=== PATIENT | male | born 1955 | race Two or more races ===

== ENCOUNTER 2024-12-27 08:10 | Day surgery (SDC) | payer OTHER ==
[2024-12-24 12:56] LABS: Urine Bacteria None Seen /hpf (None Seen)
[2024-12-24 13:07] LABS: Basophils # (auto) 0 10 ^3/uL (0-0.2); Basophils % (auto) 0.1 % (0.0-2.0); Eosinophils # (auto) 0.1 10 ^3/uL (0-0.8); Eosinophils % (auto) 2.3 % (0.0-7.0); Hematocrit 41.7 % (41.0-53.0); Hemoglobin 14.2 g/dL (13.5-17.5); Lymphocytes # (auto) 1.5 10 ^3/uL (0.4-5.4); Lymphocytes % (auto) 44.3 % (10.0-50.0); Mean Corpuscular Hemoglobin 31.6 pg (28.0-32.0); Mean Corpuscular Volume 92.7 fL (80.0-100.0); Monocytes # (auto) 0.4 10 ^3/uL (0-1.3); Monocytes % (auto) 10.6 % (0.0-12.0); Neutrophils # (auto) 1.5 10 ^3/uL (1.6-8.6); Neutrophils % (auto) 42.7 % (37.0-80.0); Platelet Count (auto) 142 10^3/uL (140-450); Red Cell Distribution Width 12.9 % (11.8-14.3); White Blood Cell 3.4 10^3/uL (4.4-10.8)
[2024-12-24 13:19] LABS: Urine Blood Negative /uL (Negative); Urine Clarity Clear (Clear); Urine Color Light-Yellow (Yellow); Urine Protein, UAD Negative (Negative); Urine Specific Gravity 1.024 (1.001-1.035); Urine Squamous Epithelial Cell FEW /hpf (<5); Urine Urobilinogen Normal (Negative); Urine WBC < 1 /HPF (0-3)
[2024-12-24 13:36] LABS: Alanine Aminotransferase 29 U/L (7-40); Alkaline Phosphatase 114 U/L (46-116); Anion Gap 6 (5-15); Aspartate Aminotransferase 18 U/L (13-40); BUN/Creatinine Ratio 22.1 (10.0-20.0); Blood Urea Nitrogen 19 mg/dL (9-23); Calcium 9.7 mg/dL (8.7-10.4); Carbon Dioxide 27 mmol/L (20-31); Chloride 100 mmol/L (98-107); Potassium 4.2 mmol/L (3.5-5.1); Total Protein 7.9 g/dL (5.7-8.2)
[2024-12-24 13:37] LABS: Bilirubin, Total 0.5 mg/dL (0.2-1.0)
[2024-12-24 13:38] LABS: Albumin 4.8 g/dL (3.2-4.8); Glucose 248 mg/dL (74-106); Sodium 133 mmol/L (136-145)
[2024-12-24 15:08] LABS: INR 1.01 (0.9-1.15); Partial Thromboplastin Time 28.4 SEC (24.5-34.5); Prothrombin Time 10.7 sec (9.3-11.8)
[~2024-12-27] VITALS: Ht 175.3 cm; Wt 83.9 kg
[~2024-12-27 08:10] MED LIST: AML5T PO; BUSP10TA31 PO; CHOL20007 PO; DULO20CA PO; GLIP10TA9 PO; LOSA-533 PO; METH-1182 PO; TAMS0.4C39 PO; TRAZ-227 PO
[2024-12-27 08:49] VITALS: TEMP 97.3
[2024-12-27] MEDS ORDERED: MIDAZOLAM HCL 2MG/2ML 2ml VIAL (1mg/ml) ONE (09:45)
[2024-12-27] MEDS ORDERED: SODIUM CHLORIDE LOCK 10 ML ONE (09:45)
[2024-12-27] MEDS ORDERED: fentaNYL CITRATE 100 MCG/2 ML VL ONE (09:45)
[2024-12-27] MEDS ORDERED: PROPOFOL 10 MG/ML 20 ML IV ONE (09:45)
[2024-12-27] MEDS ORDERED: KETAMINE 50mg/ML 1ml syringe ONE (09:45)
[2024-12-27] MEDS ORDERED: LIDOCAINE 1% INJ PF 5ML AMP ONE (10:22)
[2024-12-27 10:42] VITALS: O2SAT 100
[2024-12-27 11:12] VITALS: BP 130/79; PULSE 66; RESP 19; O2SAT 96
--- NOTE | 2024-12-27 11:29 | DVHOP2 ---
Operative Report DATE OF OPERATION: 12/27/24 PROCEDURE: Colonoscopy cold biopsy polypectomy PREOPERATIVE INDICATION: The patient is a 69 -year-old male undergoing colonoscopy for colon cancer screening last colonoscopy 11 years ago POSTOPERATIVE DIAGNOSES: 1. 3-4 mm benign-appearing transverse colon polyp was seen and removed by cold snare polypectomy and the specimens were retrieved 2. There were two diminutive 1-2 mm benign-appearing rectosigmoid polyps were seen and removed by cold biopsy forceps 3. Trace internal hemorrhoids ; somewhat long colon otherwise normal examination up to the cecum and terminal ileum PROCEDURE PERFORMED BY: Brooklyn Tierney M.D. SCOPE: Olympus videocolonoscope. ASA CLASS: 3. PREOPERATIVE MEDICATIONS: MAC Dr. Jake molina PROCEDURE IN DETAIL: After obtaining an informed consent, the patient was placed on left lateral decubitus position. He was then sedated with the above medications. A rectal examination was performed that was normal. The colonoscope was then passed through the anus into the rectosigmoid and through the descending, transverse, and ascending colon up to the cecum with visualization of the appendiceal orifice, base of the cecum and the ileocecal valve. The colonoscope was then withdrawn. The distal 5 cm of the terminal ileum were normal. Patient had a long colon with some residual liquid stool that was all aspirated. Patient had a somewhat long and mildly tortuous colon Patient had a 3-4 mm benign-appearing transverse colon polyp that was seen and removed by cold snare polypectomy and the specimens were retrieved There were two diminutive 1-2 mm benign-appearing rectosigmoid polyps were seen and removed by cold biopsy forceps On retroflexion and straight on view the patient had trace to 1+ internal hemorrhoids. The patient tolerated the procedure well without difficulty. WITHDRAWAL TIME: 10 minutes QUALITY OF THE PREP: [place] Bowel Prep score: 8. COMPLICATIONS : None SPECIMENS: Transverse colon polyp Rectosigmoid polyps DISPOSITION: Stable D/C to home PLAN: 1. Repeat colonoscopy base on biopsy result likely in 4-5 years 2. Resume GI soft diet advance as tolerated 3. Local anorectal hemorrhoidal care increase fluid and fiber intake 4. Outpatient follow up with me in 4-6 weeks to review results and discuss further management BROOKLYN TIERNEY MD Dec 27, 2024 11:29
== END 2024-12-27 11:35 | disposition home or self-care (01) ==
LOC: GI 08:10
PROVIDERS: ATTEND Internal Medicine Gastroenterology
DX: R10.32 Left lower quadrant pain (principal); D12.3 Benign neoplasm of transverse colon; D12.7 Benign neoplasm of rectosigmoid junction; K64.0 First degree hemorrhoids; Q43.8 Other specified congenital malformations of intestine; I10 Essential (primary) hypertension; E11.9 Type 2 diabetes mellitus without complications; G89.29 Other chronic pain; F32.A Depression, unspecified; Z79.899 Other long term (current) drug therapy; Z98.890 Other specified postprocedural states; Z79.84 Long term (current) use of oral hypoglycemic drugs; Z87.891 Personal history of nicotine dependence
CPT/HCPCS: 36415; 45380; 45385; 80053; 81001; 82962; 85025; 85610; 85730; 88305; J2250; J2704; J3010; J7030

== ENCOUNTER 2025-09-08 08:40 | Inpatient (IN) | payer OTHER ==
[~2025-09-08] VITALS: Ht 175.3 cm; Wt 81.5 kg
--- NOTE | 2025-09-08 09:04 | ECG ---
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
--- NOTE | 2025-09-08 09:37 | ED.PDOC ---
GI ASSESSMENT HPI Comments 70-year-old male who presents to the ED with a chief complaint of abdominal pain onset 2 weeks. Patient states he has been experiencing LLQ pain for the past 2 weeks, described as a burning sensation. He noticed pain worsens with movement, is also experiencing nausea, shortness of breath. Had a colonoscopy done in December 2024. Denies dysuria, hematuria, fever, chills, vomiting, diarrhea, headache, dizziness, chest pain, penile discharge. No other symptoms or modifying factors present at this time. Chief Complaint: Abdominal Pain Time Seen by MD: 09:25 Reviewed Notes: Medications, Allergies Allergies: Coded Allergies: Penicillins (Unverified Allergy, Intermediate, Hives , 12/25/24) Home Meds Active Scripts Amoxicillin & Pot Clavulanate (AUGMENTIN TABLET) 875 Mg Tb, 875 MG PO BID for 4 Days, #8 TAB Prov:DONN IBARRA RESDIENT 09/10/25 Reported Medications Trazodone Hcl (Trazodone Hcl) Unknown Strength Tab, PO, MG 12/25/24 Glipizide (Glipizide) Unknown Strength Tab, PO BID, #60 TAB 5 Refills 12/25/24 Losartan Potassium (Losartan Potassium) Unknown Strength Tab, PO DAILY for 30 Days, MG /25 Buspirone HCl (Buspirone HCl) Unknown Strength Tab, PO, TAB 25 Tamsulosin Hcl (Tamsulosin Hcl) Unknown Strength Cap, PO for 30 Days, MG /5/25 Amlodipine Besylate (NORVASC TABLET) Unknown Strength Tb, PO DAILY, #30 TAB 5 Refills 12/25/24 Duloxetine Hcl (Cymbalta) Unknown Strength Cap, PO DAILY, #30 CAP 2 Refills 12/25/24 Methocarbamol (Methocarbamol) Unknown Strength Tab, PO, TAB 25 Cholecalciferol (VITAMIN D3) Unknown Strength Tab, PO DAILY, #30 TAB 5 Refills 25 Information Source: Patient Mode of Arrival: Ambulatory Timing: Weeks Duration: Since onset Prehospital treatment: None Quality: Burning Vomitus: None Severity: Moderate Recent: None Recent Hx of: None Pain Location: Diffuse, LLQ Modifying Factors: Nothing Associated sign and symptoms: Nausea, Abdominal Pain Past Medical History PAST MEDICAL HISTORY: Denies Surgical History: Denies all surgeries Family History Family History: Reviewed,noncontributory to illness, No family hx of Cancer, No family hx of DM, No family hx of Heart mary, No family hx of HTN, No family hx ofKidney mary, No family hx of Liver mary, No family hx of Lung mary, No family hx of Stroke Social History Smoker: Non-Smoker Alcohol: Denies ETOH Use Drugs: Denies Drug Use Lives In: Home Constitutional: denies: chills, diaphoresis, fatigue, fever, malaise, sweats, weakness, others EENTM: denies: blurred vision, double vision, ear bleeding, ear discharge, ear drainage, ear pain, ear ringing, eye pain, eye redness, hearing loss, mouth pain, mouth swelling, nasal discharge, nose bleeding, nose congestion, nose pain, photophobia, tearing, throat pain, throat swelling, voice changes, others Respiratory: reports: shortness of breath; denies: cough, hemoptysis, orthopnea, SOB at rest, SOB with excertion, stridor, wheezing, others Cardiovascular: denies: chest pain, dizzy spells, diaphoresis, Dyspnea on exertion, edema, irregular heart beat, left arm pain, lightheadedness, palpitations, PND, syncope, others Gastrointestinal: reports: abdominal pain, nausea; denies: abdomen distended, blood streaked bowels, constipated, diarrhea, dysphagia, difficulty swallowing, hematemesis, melena, poor appetite, poor fluid intake, rectal bleeding, rectal pain, vomiting, others Genitourinary: denies: burning, dysuria, flank pain, frequency, hematuria, incontinence, penile discharge, penile sore, pain, testicle pain, testicle swelling, urgency, others Neurological: denies: dizziness, fainting, headache, left sided numbness, left sided weakness, numbness, paresthesia, pre-existing deficit, right sided numbness, right sided weakness, seizure, speech problems, tingling, tremors, weakness, others Musculoskeletal: denies: back pain, gout, joint pain, joint swelling, muscle pain, muscle stiffness, neck pain, others Integumetry: denies: bruises, change in color, change in hair/nails, dryness, laceration, lesions, lumps, rash, wounds, others Allergic/Immunocompromised: denies: Difficulty Healing, Frequent Infections, Hives, Itching, others Hematologic/Lymphatic: denies: anemia, blood clots, easy bleeding, easy bruising, swollen glands, others Endocrine: denies: excessive hunger, excessive sweating, excessive thirst, excessive urination, flushing, intolerance to cold, intolerance to heat, unexplained weight gain, unexplained weight loss, others Psychiatric: denies: anxiety, bipolar disorder, depression, hopeless, panic disorder, schizophrenia, sleepless, suicidal, others All Other Systems: Reviewed and Negative Physical Exam General Appearance: Normal HEENT: Normal ENT Inspection, Pharynx Normal, TMs Normal Neck: Full Range of Motion, Non-Tender, Normal, Normal Inspection Respiratory: Chest Non-Tender, Lungs Clear, No Accessory Muscle Use, No Respiratory Distress, Normal Breath Sounds Cardiovascular: No Edema, No JVD, No Murmur, No Gallop, Normal Peripheral Pulses, Regular Rate/Rhythm Breast Exam: Deferred Gastrointestinal: No Organomegaly, Non Tender, No Pulsatile Mass, Normal Bowel Sounds, Soft Genitalia: Deferred Pelvic: Deferred Rectal: Deferred Extremities: No calf tenderness, Normal capillary refill, Normal inspection, Normal range of motion, Non-tender, No pedal edema Musculoskeletal : Apperance: Normal Neurologic: Alert, computing tutor II-XII nml as Tested, No Motor Deficits, Normal Affect, Normal Mood, No Sensory Deficits Cerebellar Function: Normal Reflexes: Normal Skin: Dry, Normal Color, Warm Lymphatic: No Adenopathy Was a procedure done? Was a procedure done?: No GI differential Dx Differential Diagnosis: Gastritis/PUD, Gastroenteritis, UTI, Dehydration, Bacterial, Viral X-Ray, Labs, Meds, VS Vital Signs Date Time Temp Pulse Resp B/P (MAP) Pulse Ox O2 Delivery O2 Flow Rate FiO2 09/08/25 14:39 98.1 80 16 164/99 (120) 98 98.1 09/08/25 08:55 95 09/08/25 08:42 98.0 112 17 153/102 97 98.0 Lab Test 09/08/25 16:51 09/08/25 09:34 Range/Units Urine Color Yellow Yellow Urine Clarity Clear Clear Urine pH 6.0 5.0-9.0 Urine Specific [place] > 1.050 H 1.001-1.035 Urine Protein Trace H Negative Urine Ketones 1+ H Negative Urine Blood Negative Negative /uL Urine Nitrite Negative Negative Urine Bilirubin Negative Negative Urine Urobilinogen Normal Negative mg/dL Urine Leukocyte Esterase Negative Negative /uL Urine RBC 1 0 - 3 /hpf Urine Microscopic WBC 1 0-3 /HPF Urine Squamous Epithelial Cells Few <5 /hpf Urine Bacteria None seen None Seen /hpf Urine Mucus Few None Seen Urine Glucose Trace Normal mg/dL White Blood Count 6.4 4.4-10.8 10^3/uL Red Blood Count 5.03 4.5-5.90 10^6/uL Hemoglobin 16.1 13.5-17.5 g/dL Hematocrit 46.6 41.0-53.0 % Mean Corpuscular Volume 92.6 80.0-100.0 fL Mean Corpuscular Hemoglobin 32.1 H 28.0-32.0 pg Mean Corpuscular Hemoglobin Concent 34.7 32.0-36.0 g/dL Red Cell Distribution Width 13.2 11.8-14.3 % Platelet Count 156 140-450 10^3/uL Mean Platelet Volume 8.1 6.9-10.8 fL Neutrophils (%) (Auto) 69.9 37.0-80.0 % Lymphocytes (%) (Auto) 22.0 10.0-50.0 % Monocytes (%) (Auto) 7.3 0.0-12.0 % Eosinophils (%) (Auto) 0.7 0.0-7.0 % Basophils (%) (Auto) 0.1 0.0-2.0 % Neutrophils # (Auto) 4.5 1.6-8.6 10 ^3/uL Lymphocytes # (Auto) 1.4 0.4-5.4 10 ^3/uL Monocytes # (Auto) 0.5 0-1.3 10 ^3/uL Eosinophils # (Auto) 0 0-0.8 10 ^3/uL Basophils # (Auto) 0 0-0.2 10 ^3/uL Nucleated Red Blood Cells 0.1 % Sodium Level 138 136-145 mmol/L Potassium Level 3.9 3.5-5.1 mmol/L Chloride Level 101 98-107 mmol/L Carbon Dioxide Level 26 20-31 mmol/L Anion Gap 11 5-15 Blood Urea Nitrogen 12 9-23 mg/dL Creatinine 1.02 0.700-1.30 mg/dL Glomerular Filtration Rate Calc 79 >90 mL/min BUN/Creatinine Ratio 11.8 10.0-20.0 Serum Glucose 213 H 74-106 mg/dL Calcium Level 9.9 8.7-10.4 mg/dL Troponin I High Sensitivity < 3 L </=54 ng/L Time of 1ST Reevaluation: 09:55 Reevaluation 1ST: Unchanged Patient Education/Counseling: Diagnosis, Treatment, Prognosis Family Education/Counseling: No Family Present SEPSIS Sepsis Screen Date sepsis recognized/suspect: Sep 08, 2025 Time Sepsis recognized/suspect: 841 Recent Procedure: No On Antibiotic Therapy: No Respiratory Rate >20: No Heart Rate >90: Yes Temp<36 C (96.8 F) or >38.3 C: No SBP <90 or MAP <65 mmHG: No New Acute Mental Status Change: No Is the patient on CPAP, BIPAP,: No Physician Orders Electrocardigram (09/08/25 09:02) Ct Ab Pel With Iv Con Only (09/08/25 14:42) Vital Signs Date Time Temp Pulse Resp B/P (MAP) Pulse Ox O2 Delivery O2 Flow Rate FiO2 09/08/25 14:39 98.1 80 16 164/99 (120) 98 98.1 09/08/25 08:55 95 09/08/25 08:42 98.0 112 17 153/102 97 98.0 Laboratory Tests Test 09/08/25 09:34 White Blood Count 6.4 10^3/uL (4.4-10.8) Departure 1 Departure Time of Disposition: 12:55 (Patient presented with abdominal pain that was concerning for possible appendicits, gastritis, cholecystitis, colitis, gastroenteritis, sbo, or orther possible surgical emergency. Data: 1. I ordered and reviewed the result of at least 3 labs including a CBC, BMP, and Urinalysis. 2. I independently interpreted the following tests: CT Abdomen and Pelvis is concerning for ureteral colic .Risk:This patient has a high risk of morbidity due to further diagnostic testing or treatment and may suffer from an acute abdominal process disorder. Workup reveals intractable abdominal pain ureteral colic. and patient should be admitted for further workup. and possible expert consultation. ) Impression: Primary Impression: Intractable abdominal pain Disposition: ADMITTED INPATIENT Admit to: Med Surg Condition: Guarded e-Prescriptions Amoxicillin & Pot Clavulanate (AUGMENTIN TABLET) 875 Mg Tb 875 MG PO BID for 4 Days, #8 TAB Prov: DONN IBARRA RESDIENT 09/10/25 Critical Care Note Critical Care Time?: No Stability Stability form required: No Heart Score Heart Score: Heart Score Response (Comments) Value History N/A 0 EKG N/A 0 Age N/A 0 Risk Factors N/A 0 Troponin N/A 0 Total 0 I personally scribed for DAYDAY MATHUR MD ([email or web address]) on 09/08/25 at 09:37. Electronically submitted by [place] ([email or web address]). DAYDAY MATHUR MD Sep 08, 2025 09:37
[2025-09-08 10:05] LABS: Hematocrit 46.6 % (41.0-53.0); Hemoglobin 16.1 g/dL (13.5-17.5); Mean Corpuscular Hemoglobin 32.1 pg (28.0-32.0); Mean Corpuscular Volume 92.6 fL (80.0-100.0); Nucleated Red Blood Cells % 0.1 %
[2025-09-08 10:14] LABS: Chloride 101 mmol/L (98-107); Potassium 3.9 mmol/L (3.5-5.1); Sodium 138 mmol/L (136-145)
[2025-09-08 10:15] LABS: Anion Gap 11 (5-15); Calcium 9.9 mg/dL (8.7-10.4); Carbon Dioxide 26 mmol/L (20-31)
[2025-09-08 10:20] LABS: BUN/Creatinine Ratio 11.8 (10.0-20.0); Blood Urea Nitrogen 12 mg/dL (9-23)
[2025-09-08 10:32] LABS: Glucose 213 mg/dL (74-106)
[2025-09-08] MEDS: IOHEXOL 300 MG/ML 100ML BOTTLE IJ ONE ×2 (15:45)
--- NOTE | 2025-09-08 17:00 | DVH ---
Exam: CT CT AB PEL WITH IV CON ONLY History: ABDOMINAL PAIN Comparison Study: None Contrast: Type of contrast: Omnipaque 300 Contrast injected: 100 mL Contrast wasted: 0 TECHNIQUE: A digital hvac mechanic image was obtained. During the uneventful, intravenous administration of contrast material, multislice data acquisition was obtained through the abdomen and pelvis. The data set was subsequently reconstructed into axial images. Images were reviewed on a work station using a combination of axial and multiplanar using a variety of window levels and settings. Radiation Dose Information: CT Dose: CTDI volume is 10.6 mGy. Dose-length product is 675 mGy*cm FINDINGS: Lung Bases: No acute or significant lung base finding. Normal heart size. No pleural or pericardial effusion. Liver: The liver is normal in size. No focal lesions. Normal hepatic vascular enhancement. Gallbladder and Biliary Tree: Unremarkable Spleen: Unremarkable Pancreas: The pancreas is normal in appearance without focal lesions or abnormal enhancement. Adrenal Glands: Unremarkable Kidneys: Kidneys demonstrate normal symmetric enhancement without focal lesions, calculi or hydronephrosis. There is a 6.9 cm left renal cyst. Bladder: Unremarkable Bowel: The stomach is grossly normal in appearance. Small bowel and colon are normal in caliber and distribution. The appendix is not visualized; however, no secondary findings of acute appendicitis identified. Diverticulosis noted. Ascites: Absent Lymphadenopathy: No mesenteric, retroperitoneal or periportal lymphadenopathy. Abdominal Wall and Mesentery: Unremarkable. Vasculature: The visualized abdominal aorta is normal in size and caliber. Abdominal and pelvic vessels demonstrate normal enhancement. Pelvic Organs: Unremarkable Musculoskeletal: No aggressive focal bony lesions, acute fractures or dislocation. Soft tissues: Unremarkable. IMPRESSION: 1. No acute abnormality in the abdomen or pelvis. 2. Diverticulosis 3. All CT scans at this medical facility are performed using dose modulation techniques as appropriate to a performed exam including the following: Automated exposure control was utilized; adjustment of the MA and/or KV according to patient size; and use of iterative reconstruction technique. -[facility]
[2025-09-08] MEDS ORDERED: ONDANSETRON HCL 4 MG/2 ML VIAL IV PRN (17:15)
[2025-09-08] MEDS ORDERED: METOCLOPRAMIDE HCL 5MG/ml INJ 2ml VIAL IV PRN (17:15)
[2025-09-08] MEDS ORDERED: DOCUSATE SOD 100 MG CAP PO PRN (17:15)
[2025-09-08 17:20] LABS: Urine Protein, UAD TRACE (Negative)
[2025-09-08] MEDS ORDERED: DEXTROSE (50%) 50ML SYRG IV PRN (17:30)
[2025-09-08] MEDS: SODIUM CHLORIDE 0.9% 1,000 ML IV ONE (17:30)
--- NOTE | 2025-09-08 17:35 | DVHHP2 ---
History of Present Illness Reason for Visit: Abdominal pain History of Present Illness Haseeb Monterroso is a 70-year-old male with past medical history of diabetes, hypertension, and COPD, who came to the hospital for abdominal pain. Patient states he has had abdominal pain for about 15-20 days, and that he did not come in sooner because he doesn't like hospitals. Patient is a poor historian and is not able to give me his full history and is not sure what mediations he takes. Prior to arrival he has used a pen and circled the areas of his abdomen that have been hurting him for the last couple of weeks. Cardiovascular: HTN Pulmonary: COPD Endocrine: Diabetes Past Surgical History: Other (left shoulder), Tonsillectomy Smoke: No ALCOHOL: none Drugs: None Lives: with Family Domestic Violence: Neg Review of Systems Constitutional: No: Fever, Chills, Sweats, Weakness, Malaise, Other Eyes: No: Pain, Vision change, Conjunctivae inflammation, Eyelid inflammation, Other, Redness ENT: No: Ear pain, Ear discharge, Nose pain, Nose discharge, Nose congestion, Mouth pain, Mouth swelling, Throat pain, Throat swelling, Other Respiratory: No: Cough, Dry, Shortness of breath, SOB with excertion, Wheezing, Hemoptysis, Pleuritic Pain, Sputum, Wheezing, Other Cardiovascular: No: Chest Pain, Palpitations, Orthopnea, Paroxysmal Noc. Dyspnea, Edema, Lt Headedness, Other Gastrointestinal: Nausea, Abdominal Pain, Diarrhea; No: Vomiting, Constipation, Melena, Hematochezia, Other Genitourinary: No Dysuria, No Frequency, No Incontinence, No Hematuria, No Retention, No Other Musculoskeletal: No: other, neck pain, shoulder pain, arm pain, back pain, hand pain, leg pain, foot pain Skin: No: Rash, Lesions, Jaundice, Bruising, Other Neurological: No: Weakness, Numbness, Incoordination, Change in speech, Confusion, Seizures, Other Allergies: Coded Allergies: Penicillins (Unverified Allergy, Intermediate, Hives , 12/25/24) Exam Vital Signs Vital Signs Date Time Temp Pulse Resp B/P (MAP) Pulse Ox O2 Delivery O2 Flow Rate FiO2 09/08/25 14:39 98.1 80 16 164/99 (120) 98 98.1 General Appearance: Alert, Oriented X3, Cooperative HEENT: Atraumatic, PERRLA Respiratory: Clear to auscultation, Normal air movement Cardiovascular: Regular rate, Normal S1, Normal S2 Abdominal: Normal bowel sounds, Soft, Other (LLQ tenderness) Extremities: No clubbing, No cyanosis Skin: No rashes, No breakdown, No significant lesion Neuro: Normal gait, Normal speech, Strength at 5/5 X4 ext Psych/Mental Status: Mental status NL, Mood NL Labs/Xrays Labs Test 09/08/25 16:51 09/08/25 09:34 Range/Units White Blood Count 6.4 4.4-10.8 10^3/uL Red Blood Count 5.03 4.5-5.90 10^6/uL Hemoglobin 16.1 13.5-17.5 g/dL Hematocrit 46.6 41.0-53.0 % Mean Corpuscular Volume 92.6 80.0-100.0 fL Mean Corpuscular Hemoglobin 32.1 H 28.0-32.0 pg Mean Corpuscular Hemoglobin Concent 34.7 32.0-36.0 g/dL Red Cell Distribution Width 13.2 11.8-14.3 % Platelet Count 156 140-450 10^3/uL Mean Platelet Volume 8.1 6.9-10.8 fL Neutrophils (%) (Auto) 69.9 37.0-80.0 % Lymphocytes (%) (Auto) 22.0 10.0-50.0 % Monocytes (%) (Auto) 7.3 0.0-12.0 % Eosinophils (%) (Auto) 0.7 0.0-7.0 % Basophils (%) (Auto) 0.1 0.0-2.0 % Neutrophils # (Auto) 4.5 1.6-8.6 10 ^3/uL Lymphocytes # (Auto) 1.4 0.4-5.4 10 ^3/uL Monocytes # (Auto) 0.5 0-1.3 10 ^3/uL Eosinophils # (Auto) 0 0-0.8 10 ^3/uL Basophils # (Auto) 0 0-0.2 10 ^3/uL Nucleated Red Blood Cells 0.1 % Sodium Level 138 136-145 mmol/L Potassium Level 3.9 3.5-5.1 mmol/L Chloride Level 101 98-107 mmol/L Carbon Dioxide Level 26 20-31 mmol/L Anion Gap 11 5-15 Blood Urea Nitrogen 12 9-23 mg/dL Creatinine 1.02 0.700-1.30 mg/dL Glomerular Filtration Rate Calc 79 >90 mL/min BUN/Creatinine Ratio 11.8 10.0-20.0 Serum Glucose 213 H 74-106 mg/dL Calcium Level 9.9 8.7-10.4 mg/dL Troponin I High Sensitivity < 3 L </=54 ng/L Exam: CT CT AB PEL WITH IV CON ONLY FINDINGS: Lung Bases: No acute or significant lung base finding. Normal heart size. No pleural or pericardial effusion. Liver: The liver is normal in size. No focal lesions. Normal hepatic vascular enhancement. Gallbladder and Biliary Tree: Unremarkable Spleen: Unremarkable Pancreas: The pancreas is normal in appearance without focal lesions or abnormal enhancement. Adrenal Glands: Unremarkable Kidneys: Kidneys demonstrate normal symmetric enhancement without focal lesions, calculi or hydronephrosis. There is a 6.9 cm left renal cyst. Bladder: Unremarkable Bowel: The stomach is grossly normal in appearance. Small bowel and colon are normal in caliber and distribution. The appendix is not visualized; however, no secondary findings of acute appendicitis identified. Diverticulosis noted. Ascites: Absent Lymphadenopathy: No mesenteric, retroperitoneal or periportal lymphadenopathy. Abdominal Wall and Mesentery: Unremarkable. Vasculature: The visualized abdominal aorta is normal in size and caliber. Abdominal and pelvic vessels demonstrate normal enhancement. Pelvic Organs: Unremarkable Musculoskeletal: No aggressive focal bony lesions, acute fractures or dislocation. Soft tissues: Unremarkable. IMPRESSION: 1. No acute abnormality in the abdomen or pelvis. 2. Diverticulosis 3. All CT scans at this medical facility are performed using dose modulation techniques as appropriate to a performed exam including the following: Automated exposure control was utilized; adjustment of the MA and/or KV according to patient size; and use of iterative reconstruction technique. SEPSIS Sepsis Screen Date sepsis recognized/suspect: Sep 08, 2025 Time Sepsis recognized/suspect: 0842 Recent Procedure: No On Antibiotic Therapy: No Respiratory Rate >20: No Heart Rate >90: Yes Temp<36 C (96.8 F) or >38.3 C: No SBP <90 or MAP <65 mmHG: No New Acute Mental Status Change: No Is the patient on CPAP, BIPAP,: No Physician Orders Urinalysis (09/08/25 09:20) Ct Ab Pel With Iv Con Only (09/08/25 14:42) Admit (09/08/25 17:09) Code Status (09/08/25 17:09) 2 Gm Sodium Diet (09/08/25 Dinner) Sodium Chloride Lock (Saline Lock Ns) (09/08/25 22:00) Hydrocodone-Acet 5/325mg Tab ([place] 5/32 (09/08/25 17:15) Ondansetron Hcl (Zofran) (09/08/25 17:15) Docusate Sodium Capsule (Colace Capsule) (09/08/25 17:15) Complete Blood Count (09/09/25 04:00) Comprehensive Metabolic Panel (09/09/25 04:00) Condition: Serious (09/08/25 17:09) Acetaminophen Tablet (Tylenol Tablet) (09/08/25 17:15) Vital Signs Date Time Temp Pulse Resp B/P (MAP) Pulse Ox O2 Delivery O2 Flow Rate FiO2 09/08/25 14:39 98.1 80 16 164/99 (120) 98 98.1 Laboratory Tests Test 09/08/25 09:34 White Blood Count 6.4 10^3/uL (4.4-10.8) Assessment/Plan Assessment/Plan Assessment: Diverticulosis, Renal cyst, Hyperglycemia, Diabetes, Hypertension, COPD, Plan: Admit to Med-Surg, Urology consult, IV antibiotics, IV hydration, A1c, Accu checks AC&HS with sliding scale, Patient needs to bring in list of home medications so they can be reconciled, Plan discussed with: Patient My Orders Orders - NIGEL HORN Procedure Category Date Status Time Admit ADMIT 09/08/25 Transmitted 17:09 Code Status CODE 09/08/25 Transmitted 17:09 2 Gm Sodium Diet DIET 09/08/25 Transmitted Dinner Sodium Chloride Lock PHA 09/08/25 Transmitted (Saline Lock Ns) 22:00 Hydrocodone-Acet PHA 09/08/25 Transmitted 5/325mg Tab ([place] 17:15 Ondansetron Hcl PHA 09/08/25 Transmitted (Zofran) 17:15 Docusate Sodium PHA 09/08/25 Transmitted Capsule (Colace 17:15 Complete Blood Count LAB 09/09/25 Verified 04:00 Comprehensive LAB 09/09/25 Verified Metabolic Panel 04:00 Condition: Serious RAINER 09/08/25 Transmitted 17:09 Acetaminophen Tablet PHA 09/08/25 Transmitted (Tylenol Tablet) 17:15 Date of Service: Sep 08, 2025 Billing Provider: NIGEL HORN Common Visit Codes: [id number] INP/OBS CARE (MOD) NIGEL HORN Sep 08, 2025 17:35
--- NOTE | 2025-09-08 20:31 | DVHINCON2 ---
Date of service: Sep 08, 2025 Referring Physician Hospitalist Reason for Consultation Renal cyst History of Present Illness 70-year-old male with past medical history of diabetes, hypertension, and COPD, who came to the hospital for abdominal pain. Patient states he has had abdominal pain for about 15-20 days, and that he did not come in sooner because he doesn't like hospitals. Patient is a poor historian and is not able to give me his full history and is not sure what mediations he takes. Prior to arrival he has used a pen and circled the areas of his abdomen that have been hurting him for the last couple of weeks. Past Medical History Cardiovascular: HTN Pulmonary: COPD Endocrine: Diabetes Past Surgical History (left shoulder), Tonsillectomy Allergies: Coded Allergies: Penicillins (Unverified Allergy, Intermediate, Hives , 12/25/24) Home Meds Reported Medications Trazodone Hcl (Trazodone Hcl) Unknown Strength Tab, PO, MG 12/25/24 Glipizide (Glipizide) Unknown Strength Tab, PO BID, #60 TAB 5 Refills 12/25/24 Losartan Potassium (Losartan Potassium) Unknown Strength Tab, PO DAILY for 30 Days, MG 25 Buspirone HCl (Buspirone HCl) Unknown Strength Tab, PO, TAB 25 Tamsulosin Hcl (Tamsulosin Hcl) Unknown Strength Cap, PO for 30 Days, MG 12/25/24 Amlodipine Besylate (NORVASC TABLET) Unknown Strength Tb, PO DAILY, #30 TAB 5 Refills 12/25/24 Duloxetine Hcl (Cymbalta) Unknown Strength Cap, PO DAILY, #30 CAP 2 Refills 12/25/24 Methocarbamol (Methocarbamol) Unknown Strength Tab, PO, TAB 12/25/24 Cholecalciferol (VITAMIN D3) Unknown Strength Tab, PO DAILY, #30 TAB 5 Refills 12/25/24 Current Medications Current Medications Medications (Trade) Dose Ordered Sig/Mono Route PRN Reason Start Time Stop Time Status Last Admin Sodium Chloride (Saline Lock Ns) 10 ml Q8HR IV 09/08/25 22:00 Acetaminophen/ Hydrocodone Bitart ([place] 5/325MG Tab) 1 tab Q4HP PRN PO MODERATE PAIN (4-6 PAIN SCALE) 09/08/25 17:15 Ondansetron HCl (Zofran) 4 mg Q4HP PRN IV NAUSEA / VOMITING 09/08/25 17:15 Docusate Sodium (Colace Capsule) 100 mg BIDPRN PRN PO FOR CONSTIPATION 09/08/25 17:15 Acetaminophen (Tylenol Tablet) 650 mg Q6HP PRN PO PAIN SCALE 1-3 OR TEMP>100.4 09/08/25 17:15 Ipratropium [place] (Atrovent Medneb) 0.5 mg Q4HPRN PRN NEB SHORTNESS OF BREATH 09/08/25 17:15 Albuterol (Ventolin Medneb) 1.25 mg Q4HPRN PRN NEB SHORTNESS OF BREATH 09/08/25 17:15 Metoclopramide HCl (Reglan Injection) 10 mg Q6HPRN PRN IV NAUSEA / VOMITING 09/08/25 17:15 Diagnostic Test (Pha) (Accu-Chek Comfort Curve T) 1 strip ACHS 09/08/25 22:00 Insulin Human Regular (InsuLIN R) HS SC 09/08/25 22:00 Insulin Human Regular (InsuLIN R) AC SC 09/09/25 07:00 Dextrose 50 ml UD PRN IV Blood Sugar LESS THAN 60 09/08/25 17:30 Metronidazole 100 ml @ 100 mls/hr Q8HR IV 09/08/25 22:00 Ceftriaxone Sodium 50 ml @ 100 mls/hr DAILY@09 IV 09/09/25 09:00 Review of Systems Constitutional: No: Fever, Chills, Sweats, Weakness, Malaise, Other Eyes: No: Pain, Vision change, Conjunctivae inflammation, Eyelid inflammation, Other, Redness ENT: No: Ear pain, Ear discharge, Nose pain, Nose discharge, Nose congestion, Mouth pain, Mouth swelling, Throat pain, Throat swelling, Other Respiratory: No: Cough, Dry, Shortness of breath, SOB with excertion, Wheezing, Hemoptysis, Pleuritic Pain, Sputum, Wheezing, Other Cardiovascular: No: Chest Pain, Palpitations, Orthopnea, Paroxysmal Noc. Dyspnea, Edema, Lt Headedness, Other Gastrointestinal: Nausea, Abdominal Pain, Diarrhea; No: Vomiting, Constipation, Melena, Hematochezia, Other Genitourinary: No Dysuria, No Frequency, No Incontinence, No Hematuria, No Retention, No Other Musculoskeletal: No: other, neck pain, shoulder pain, arm pain, back pain, hand pain, leg pain, foot pain Skin: No: Rash, Lesions, Jaundice, Bruising, Other Neurological: No: Weakness, Numbness, Incoordination, Change in speech, Confusion, Seizures, Other Allergies: Coded Allergies: Penicillins (Unverified Allergy, Intermediate, Hives , 12/25/24) Vital Signs Vital Signs Date Time Temp Pulse Resp B/P (MAP) Pulse Ox O2 Delivery O2 Flow Rate FiO2 09/08/25 17:40 98.5 117 16 140/88 (105) 96 98.5 Physical Exam s Vital Signs Date Time Temp Pulse Resp B/P (MAP) Pulse Ox O2 Delivery O2 Flow Rate FiO2 09/08/25 14:39 98.1 80 16 164/99 (120) 98 98.1 General Appearance: Alert, Oriented X3, Cooperative HEENT: Atraumatic, PERRLA Respiratory: Clear to auscultation, Normal air movement Cardiovascular: Regular rate, Normal S1, Normal S2 Abdominal: Normal bowel sounds, Soft, Other (LLQ tenderness) Extremities: No clubbing, No cyanosis Skin: No rashes, No breakdown, No significant lesion Neuro: Normal gait, Normal speech, Strength at 5/5 X4 ext Psych/Mental Status: Mental status NL, Mood NL Labs/Diagnostic Data Labs Test 09/08/25 16:51 09/08/25 09:34 Range/Units Urine Color Yellow Yellow Urine Clarity Clear Clear Urine pH 6.0 5.0-9.0 Urine Specific [place] > 1.050 H 1.001-1.035 Urine Protein Trace H Negative Urine Ketones 1+ H Negative Urine Blood Negative Negative /uL Urine Nitrite Negative Negative Urine Bilirubin Negative Negative Urine Urobilinogen Normal Negative mg/dL Urine Leukocyte Esterase Negative Negative /uL Urine RBC 1 0 - 3 /hpf Urine Microscopic WBC 1 0-3 /HPF Urine Squamous Epithelial Cells Few <5 /hpf Urine Bacteria None seen None Seen /hpf Urine Mucus Few None Seen Urine Glucose Trace Normal mg/dL White Blood Count 6.4 4.4-10.8 10^3/uL Red Blood Count 5.03 4.5-5.90 10^6/uL Hemoglobin 16.1 13.5-17.5 g/dL Hematocrit 46.6 41.0-53.0 % Mean Corpuscular Volume 92.6 80.0-100.0 fL Mean Corpuscular Hemoglobin 32.1 H 28.0-32.0 pg Mean Corpuscular Hemoglobin Concent 34.7 32.0-36.0 g/dL Red Cell Distribution Width 13.2 11.8-14.3 % Platelet Count 156 140-450 10^3/uL Mean Platelet Volume 8.1 6.9-10.8 fL Neutrophils (%) (Auto) 69.9 37.0-80.0 % Lymphocytes (%) (Auto) 22.0 10.0-50.0 % Monocytes (%) (Auto) 7.3 0.0-12.0 % Eosinophils (%) (Auto) 0.7 0.0-7.0 % Basophils (%) (Auto) 0.1 0.0-2.0 % Neutrophils # (Auto) 4.5 1.6-8.6 10 ^3/uL Lymphocytes # (Auto) 1.4 0.4-5.4 10 ^3/uL Monocytes # (Auto) 0.5 0-1.3 10 ^3/uL Eosinophils # (Auto) 0 0-0.8 10 ^3/uL Basophils # (Auto) 0 0-0.2 10 ^3/uL Nucleated Red Blood Cells 0.1 % Sodium Level 138 136-145 mmol/L Potassium Level 3.9 3.5-5.1 mmol/L Chloride Level 101 98-107 mmol/L Carbon Dioxide Level 26 20-31 mmol/L Anion Gap 11 5-15 Blood Urea Nitrogen 12 9-23 mg/dL Creatinine 1.02 0.700-1.30 mg/dL Glomerular Filtration Rate Calc 79 >90 mL/min BUN/Creatinine Ratio 11.8 10.0-20.0 Serum Glucose 213 H 74-106 mg/dL Calcium Level 9.9 8.7-10.4 mg/dL PATIENT: ZACARIAS SOTOACCT: [id number]: [id number] : 1955LOC: ERROOM / BED: / AGE / SEX: 70 / MADM STATUS: REG ERSERVICE [id number] ORDERING PHYSICIAN: DAYDAY MATHUR MD PROCEDURE(s): ABPLIV - CT AB PEL WITH IV CON ONLY REASON: ABDOMINAL PAIN ORDER NUMBER(s): [id number], ACCESSION NUMBER(s): [id number] Exam: CT CT AB PEL WITH IV CON ONLY History: ABDOMINAL PAIN Comparison Study: None Contrast: Type of contrast: Omnipaque 300 Contrast injected: 100 mL Contrast wasted: 0 TECHNIQUE: A digital basketball scout image was obtained. During the uneventful, intravenous administration of contrast material, multislice data acquisition was obtained through the abdomen and pelvis. The data set was subsequently reconstructed into axial images. Images were reviewed on a work station using a combination of axial and multiplanar using a variety of window levels and settings. Radiation Dose Information: CT Dose: CTDI volume is 10.6 mGy. Dose-length product is 675 mGy*cm FINDINGS: Lung Bases: No acute or significant lung base finding. Normal heart size. No pleural or pericardial effusion. Liver: The liver is normal in size. No focal lesions. Normal hepatic vascular enhancement. Gallbladder and Biliary Tree: Unremarkable Spleen: Unremarkable Pancreas: The pancreas is normal in appearance without focal lesions or abnormal enhancement. Adrenal Glands: Unremarkable Kidneys: Kidneys demonstrate normal symmetric enhancement without focal lesions, calculi or hydronephrosis. There is a 6.9 cm left renal cyst. Bladder: Unremarkable Bowel: The stomach is grossly normal in appearance. Small bowel and colon are normal in caliber and distribution. The appendix is not visualized; however, no secondary findings of acute appendicitis identified. Diverticulosis noted. Ascites: Absent Lymphadenopathy: No mesenteric, retroperitoneal or periportal lymphadenopathy. Abdominal Wall and Mesentery: Unremarkable. Vasculature: The visualized abdominal aorta is normal in size and caliber. Abdominal and pelvic vessels demonstrate normal enhancement. Pelvic Organs: Unremarkable Musculoskeletal: No aggressive focal bony lesions, acute fractures or di slocation. Soft tissues: Unremarkable. IMPRESSION: 1. No acute abnormality in the abdomen or pelvis. 2. Diverticulosis 3. All CT scans at this medical facility are performed using dose modulation techniques as appropriate to a performed exam including the following: Automated exposure control was utilized; adjustment of the MA and/or KV according to patient size; and use of iterative reconstruction technique. 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
[2025-09-08] MEDS: HYDROcodone-ACET 5/325MG TAB PO PRN (20:50)
[2025-09-08] MEDS: InsuLIN REG 1unit/0.01ml Soln (100units/ml) SC SCH (22:00)
[2025-09-08 23:11] VITALS: BP 147/88; PULSE 90; RESP 18; TEMP 98.1; O2SAT 97
[2025-09-09] VITALS (11 sets, daily range): BP systolic 145–165; BP diastolic 91–97; PULSE 78–91; RESP 17–18; TEMP 97.8–98.3; O2SAT 95–99
[2025-09-09] MEDS: InsuLIN REG 1unit/0.01ml Soln (100units/ml) SC SCH (05:57)
[2025-09-09] MEDS: ACCU-CHEK COMFORT CURVE STRIP VI SCH (05:59)
[2025-09-09] MEDS: SODIUM CHLOR 0.9% PF (SALINE LOCK) 10ML VIAL/SYR IV SCH (06:00)
[2025-09-09 07:20] LABS: Hematocrit 43.6 % (41.0-53.0); Hemoglobin 15.4 g/dL (13.5-17.5); Mean Corpuscular Hemoglobin 32.8 pg (28.0-32.0); Mean Corpuscular Volume 92.8 fL (80.0-100.0); Nucleated Red Blood Cells % 0.2 %
[2025-09-09 07:59] LABS: Alanine Aminotransferase 25 U/L (7-40); Alkaline Phosphatase 112 U/L (46-116); Anion Gap 13 (5-15); BUN/Creatinine Ratio 22.7 (10.0-20.0); Calcium 9.8 mg/dL (8.7-10.4); Carbon Dioxide 25 mmol/L (20-31); Chloride 102 mmol/L (98-107); Potassium 3.7 mmol/L (3.5-5.1); Sodium 140 mmol/L (136-145); Total Protein 8.1 g/dL (5.7-8.2)
[2025-09-09 08:00] LABS: Bilirubin, Total 0.7 mg/dL (0.2-1.0)
[2025-09-09 08:01] LABS: Albumin 4.9 g/dL (3.2-4.8); Blood Urea Nitrogen 25 mg/dL (9-23); Glucose 173 mg/dL (74-106)
[2025-09-09] MEDS: ACETAMINOPHEN 325 MG TAB PO PRN (09:28)
[2025-09-09 09:38] LABS: INR 1.03 (0.9-1.15); Partial Thromboplastin Time 28.9 SEC (24.5-34.5); Prothrombin Time 10.9 sec (9.3-11.8)
--- NOTE | 2025-09-09 13:17 | ECG ---
[facility] Test Date: 2025-09-08 Test Time: 10:43:51 Pat Name: ZACARIAS SOTO Department: ED Room: 0217 A Gender: M Safety Council Director: RADHIKA : 1955 Requested By: DAYDAY MATHUR Order Number: [id number] Reading MD: Zacarias Joiner Measurements Intervals [place] Rate: 64 P: 67 WA: 192 QRS: -62 QRSD: 141 T: 77 QT: 472 QTc: 487 Interpretive Statements Sinus rhythm Nonspecific IVCD with LAD Anteroseptal infarct, age indeterminate Electronically Signed On 09-09-2025 17:58:01 PST by Zacarias Joiner Please click the below link to view image of tracing.
[2025-09-09] MEDS: SODIUM CHLORIDE 0.9% 500 ML IV ONE (13:28)
[2025-09-09] MEDS: SODIUM CHLORIDE 0.9% 1,000 ML IV ONE (14:00)
--- NOTE | 2025-09-09 16:43 | DVHPNRES ---
Progress Note Date Seen: Sep 09, 2025 Resident Creating Document: LEONCIO WARD RESIDENT Medical Necessity Reason Pt with a Central, PICC or Fol: No Subjective Review of Systems Haseeb Monterroso is a 70-year-old male with past medical history of IBS, diverticulosis, diabetes mellitus, hypertension, COPD, glaucoma, hearing loss, osteoarthritis, spinal stenosis, hiatal hernia, allergic rhinitis, PTSD presented with complaints of abdominal pain and generalized weakness. He says he has been having these symptoms for the past 6 months. Patient sees a has been having increased symptoms 1 week back when he says he had a food poisoning with nausea, decreased appetite, increased abdominal pain and presyncope. Patient says pain increased on eating. Last colonoscopy was done in December. Found to have polyps. PMHx:IBS, diverticulosis, diabetes mellitus, hypertension, COPD, glaucoma, hearing loss, osteoarthritis, spinal stenosis, hiatal hernia, allergic rhinitis, PTSD PSHx: Tonsillectomy Family history: nonrelevant Social history: 15 pack year smoking history Home medication: glipizide, tamsulosin, amlodipine, losartan Allergic history: penicillin General: patient denies fever, fatigue, sweating, any recent changes in appetite and weight. complains of generalized weakness HEENT: No headaches, visiual changes, hearing loss, tinnitus, nasal congestion and discharge, and sore throat. Cardiovascular: Denies chest pain, palpitations, dyspnea on exertion, orthopnea, or claudication. Respiratory: No cough, and wheezing. Gastrointestinal: complains of abdominal pain Genitourinary: No dysuria, hematuria, discharge, frequency, urgency, nocturia, incontinence, and urinary retention. Endocrine: No heat or cold intolerance, polydipsia, polyuria, and polyphagia. Neurological: No dizziness, extremity weakness and numbness, tremors, gait disturbance, seizures, and memory impairment. Psychiatric: Denies depression, anxiety,or insomnia. Musculoskeletal: Denies neck pain, stiffness and swelling, back pain, muscle weakness, joint pain, stiffness, swelling, or limited range of motion. Skin: No rashes, itching, skin lesion, changes in hair, nail, skin texture and breast. Hematologic/Lymphatic: Denies easy bruising, bleeding tendencies, or lymph node enlargement. Objective vital signs Vital Sign Date Time Temp Pulse Resp B/P (MAP) Pulse Ox O2 Delivery O2 Flow Rate FiO2 09/09/25 13:00 98.2 87 17 150/91 (110) 98 98.2 09/09/25 10:00 Room Air* 0 21 Total Intake and Output 09/08/25 09/08/25 09/09/25 15:00 23:00 07:00 Intake Total 500 ml Balance 500 ml medications Current Medications Medications Dose Ordered Sig/Mono Route Start Time Stop Time Status Last Admin Dose Admin Sodium Chloride 10 ml Q8HR IV 09/08/25 22:00 09/09/25 13:28 10 ML Acetaminophen/ Hydrocodone Bitart 1 tab Q4HP PRN PO 09/08/25 17:15 09/08/25 20:50 1 TAB Ondansetron HCl 4 mg Q4HP PRN IV 09/08/25 17:15 Docusate Sodium 100 mg BIDPRN PRN PO 09/08/25 17:15 Acetaminophen 650 mg Q6HP PRN PO 09/08/25 17:15 09/09/25 09:28 650 MG Ipratropium [place] 0.5 mg Q4HPRN PRN NEB 09/08/25 17:15 Albuterol 1.25 mg Q4HPRN PRN NEB 09/08/25 17:15 Metoclopramide HCl 10 mg Q6HPRN PRN IV 09/08/25 17:15 Diagnostic Test (Pha) 1 strip ACHS 09/08/25 22:00 09/09/25 10:58 1 STRIP Insulin Human Regular HS SC 09/08/25 22:00 Insulin Human Regular AC SC 09/09/25 07:00 09/09/25 11:26 3 UNITS Dextrose 50 ml UD PRN IV 09/08/25 17:30 Metronidazole 100 ml @ 100 mls/hr Q8HR IV 09/08/25 22:00 09/09/25 13:28 100 MLS/HR Ceftriaxone Sodium 50 ml @ 100 mls/hr DAILY@09 IV 09/09/25 09:00 09/09/25 09:27 100 MLS/HR Gabapentin 100 mg DAILY PO 09/09/25 15:45 Baclofen 10 mg DAILY PO 09/09/25 15:45 Examination General Appearance: Alert, Oriented X3, Cooperative, No acute distress HEENT: Atraumatic, PERRLA, EOMI, Mucous membrane moist/pink Respiratory: Clear to auscultation, Normal air movement Cardiovascular: Regular rate, Normal S1, Normal S2, No murmurs, no chest wall tenderness Abdominal: tenderness in the left lower quadrant and left flank Extremities: No clubbing, No cyanosis, No edema, Normal pulses, No tenderness/swelling Skin: No rashes, No breakdown, No significant lesion Neuro: Normal gait, Normal speech, Strength at 5/5 X4 ext, Normal tone, Sensation intact, Cranial nerves 3-12 NL, Reflexes 2+ Psych/Mental Status: Mental status NL, Mood NL laboratory and microbiology Laboratory Tests 09/09/25 05:07 Test 09/09/25 05:07 Range/Units Serum Glucose 173 H 74-106 mg/dL Problem List/Assessment/Plan Problem List/Assessment/Plan Assessment and plan Diverticulosis, unable to rule out early diverticulitis acute gastroenteritis IV ceftriaxone IV metronidazole IV fluids Last colonoscopy in December, as per GI plan Follow up colonoscopy in 3-4 years. left renal cyst Urology consult Interventional Radiology consult Hyperglycemia, type 2 diabetes mellitus held glipizide started on sliding scale insulin Essential hypertension continue amlodipine and losartan target in-hospital blood pressure below 140/90 COPD, not on exacerbation follow up with PCP on discharge Irritable bowel syndrome follow up with PCP on discharge Bilateral hearing loss follow up with PCP on discharge Glaucoma follow up with PCP on discharge cervical radiculopathy, Spinal stenosis started gabapentin baclofen hiatal hernia follow up with PCP on discharge Allergic rhinitis consider antiallergic PTSD follow up with psychiatrist on discharge DVT PROPHYLAXIS: Patient ambulatory GI PROPHYLAXIS:: Protonix CODE STATUS: full code DISPOSITION: Med/surge RECONCILED HOME MEDS: Glipizide, tamsulosin, amlodipine, losartan PCP: Patient's status and plan discussed with the patient. Case discussed with Dr. Sandy Plan discussed with: Patient My Orders My Orders Orders - LEONCIO WARD RESIDENT Procedure Category Date Status Time Full Liq Diet DIET 09/09/25 Transmitted Lunch Sodium Chloride 0.9% PHA 09/09/25 In Process 14:00 Gabapentin Capsule PHA 09/09/25 In Process (Neurontin Capsule) 15:45 Baclofen Tablet PHA 09/09/25 In Process (Liorisal Tablet) 15:45 Tamsulosin PHA 09/09/25 Logged Hydrochloride (Flomax) 18:00 Amlodipine Tablet PHA 09/09/25 Logged (Norvasc Tablet) 16:30 Losartan Tablet PHA 09/09/25 Logged (Cozaar Tablet) 16:30 Date of Service: Sep 09, 2025 Billing Provider: FERNANDA CHAKRABORTY MD Common Visit Codes: [id number] INP/OBS CARE(HIGH) LEONCIO WARD RESIDENT Sep 09, 2025 16:43
[2025-09-09] MEDS: BACLOFEN 10 MG TAB PO SCH (17:08)
[2025-09-09] MEDS: LOSARTAN POTASSIUM 50 MG TAB PO SCH (17:09)
[2025-09-09] MEDS: GABAPENTIN 100 MG CAP PO SCH (17:09)
[2025-09-09] MEDS: TAMSULOSIN HYDROCHLORIDE 0.4 MG CAP PO SCH (17:10)
[2025-09-10] VITALS (9 sets, daily range): BP systolic 118–154; BP diastolic 67–96; PULSE 78–89; RESP 16–19; TEMP 98–98.9; O2SAT 95–100
[2025-09-10 06:06] LABS: Hematocrit 43.1 % (41.0-53.0); Hemoglobin 14.8 g/dL (13.5-17.5); Mean Corpuscular Hemoglobin 31.7 pg (28.0-32.0); Mean Corpuscular Volume 92.3 fL (80.0-100.0); Nucleated Red Blood Cells % 0.1 %
[2025-09-10] MEDS: PANTOPRAZOLE 40 MG TAB PO SCH (06:11)
[2025-09-10 06:25] LABS: Alanine Aminotransferase 25 U/L (7-40); Albumin 4.5 g/dL (3.2-4.8); Alkaline Phosphatase 103 U/L (46-116); Anion Gap 12 (5-15); BUN/Creatinine Ratio 14.7 (10.0-20.0); Bilirubin, Total 0.9 mg/dL (0.2-1.0); Blood Urea Nitrogen 14 mg/dL (9-23); Calcium 9.5 mg/dL (8.7-10.4); Carbon Dioxide 25 mmol/L (20-31); Chloride 104 mmol/L (98-107); Glucose 148 mg/dL (74-106); Potassium 3.7 mmol/L (3.5-5.1); Sodium 141 mmol/L (136-145); Total Protein 7.6 g/dL (5.7-8.2)
[2025-09-10] MEDS: LOSARTAN POTASSIUM 50 MG TAB PO SCH (09:01)
[2025-09-10] MEDS: ALBUTEROL SULF 2.5 MG/0.5ML(0.5%) NEB SOLN NEB PRN (09:45)
[2025-09-10] MEDS: IPRATROPIUM BROM 0.5 MG/2.5ML INH SOL NEB PRN (09:45)
[2025-09-10] MEDS ORDERED: AUG875T PO (11:39)
--- NOTE | 2025-09-10 14:16 | DVHDSRES ---
Discharge Summary Date of Admission Resident Creating Document: LEONCIO WARD RESIDENT Sep 08, 2025 at 17:09 Date of Discharge: Sep 10, 2025 Labs/Diagnostic Data: Laboratory Results Test 09/10/25 11:03 09/10/25 05:05 09/09/25 08:53 09/09/25 05:07 POC Glucose 204 mg/dl (70-106) White Blood Count 4.8 10^3/uL (4.4-10.8) Red Blood Count 4.67 10^6/uL (4.5-5.90) Hemoglobin 14.8 g/dL (13.5-17.5) Hematocrit 43.1 % (41.0-53.0) Mean Corpuscular Volume 92.3 fL (80.0-100.0) Mean Corpuscular Hemoglobin 31.7 pg (28.0-32.0) Mean Corpuscular Hemoglobin Concent 34.4 g/dL (32.0-36.0) Red Cell Distribution Width 13.3 % (11.8-14.3) Platelet Count 139 10^3/uL (140-450) Mean Platelet Volume 8.1 fL (6.9-10.8) Neutrophils (%) (Auto) 48.0 % (37.0-80.0) Lymphocytes (%) (Auto) 37.9 % (10.0-50.0) Monocytes (%) (Auto) 12.4 % (0.0-12.0) Eosinophils (%) (Auto) 1.4 % (0.0-7.0) Basophils (%) (Auto) 0.3 % (0.0-2.0) Neutrophils # (Auto) 2.3 10 ^3/uL (1.6-8.6) Lymphocytes # (Auto) 1.8 10 ^3/uL (0.4-5.4) Monocytes # (Auto) 0.6 10 ^3/uL (0-1.3) Eosinophils # (Auto) 0.1 10 ^3/uL (0-0.8) Basophils # (Auto) 0 10 ^3/uL (0-0.2) Nucleated Red Blood Cells 0.1 % Sodium Level 141 mmol/L (136-145) Potassium Level 3.7 mmol/L (3.5-5.1) Chloride Level 104 mmol/L (98-107) Carbon Dioxide Level 25 mmol/L (20-31) Anion Gap 12 (5-15) Blood Urea Nitrogen 14 mg/dL (9-23) Creatinine 0.95 mg/dL (0.700-1.30) Glomerular Filtration Rate Calc 86 mL/min (>90) BUN/Creatinine Ratio 14.7 (10.0-20.0) Serum Glucose 148 mg/dL (74-106) Calcium Level 9.5 mg/dL (8.7-10.4) Total Bilirubin 0.9 mg/dL (0.2-1.0) Aspartate Amino Transferase (AST) 26 U/L (13-40) Alanine Aminotransferase (ALT) 25 U/L (7-40) Alkaline Phosphatase 103 U/L (46-116) Total Protein 7.6 g/dL (5.7-8.2) Albumin 4.5 g/dL (3.2-4.8) Prothrombin Time 10.9 sec (9.3-11.8) Prothrombin Time INR 1.03 (0.9-1.15) Activated Partial Thromboplast Time 28.9 SEC (24.5-34.5) Hemoglobin A1c 6.8 % A1C (<5.7) Test 09/08/25 16:51 09/08/25 09:34 Urine Color Yellow (Yellow) Urine Clarity Clear (Clear) Urine pH 6.0 (5.0-9.0) Urine Specific [place] > 1.050 (1.001-1.035) Urine Protein Trace (Negative) Urine Ketones 1+ (Negative) Urine Blood Negative /uL (Negative) Urine Nitrite Negative (Negative) Urine Bilirubin Negative (Negative) Urine Urobilinogen Normal mg/dL (Negative) Urine Leukocyte Esterase Negative /uL (Negative) Urine RBC 1 /hpf (0 - 3) Urine Microscopic WBC 1 /HPF (0-3) Urine Squamous Epithelial Cells Few /hpf (<5) Urine Bacteria None seen /hpf (None Seen) Urine Mucus Few (None Seen) Urine Glucose Trace mg/dL (Normal) Troponin I High Sensitivity < 3 ng/L (</=54) Other Laboratory Tests 09/10/25 05:05 Brief Hx & Hospital Course: Haseeb Monterroso is a 70-year-old male with past medical history of IBS, diverticulosis, diabetes mellitus, hypertension, COPD, glaucoma, hearing loss, osteoarthritis, spinal stenosis, hiatal hernia, allergic rhinitis, PTSD presented with complaints of abdominal pain and generalized weakness. He said he has been having these symptoms for the past 6 months. Patient said he had been having increased symptoms 1 week back when he says he had a food poisoning with nausea, decreased appetite, increased abdominal pain and presyncope. Patient reported pain increased on eating. Last colonoscopy was done in December which revealed polyps.CT abdomen showed diverticulosis and a left renal cyst for which urology consultation was placed. They recommended drainage by IR if pain is intolerable.. Patient was treated with ceftriaxone, metronidazole antihypertensives, gabapentin and painkillers. During the course of the hospitalization, the patient was better clinically and is hence being discharged. Discharge Plan: Follow up with PCP in 7 days Follow up with discharge clinic in 7 days Follow up with GI in OP basis Augmentin 875 b.i.d. for 4 days Continue home medications Condition at Discharge: Fair Final Diagnosis/Problems List Diverticulosis, unable to rule out early diverticulitis Acute gastroenteritis, infectious etiology likely Left renal cyst type 2 diabetes mellitus, with Hyperglycemia Essential hypertension COPD, not on exacerbation Irritable bowel syndrome Bilateral hearing loss Glaucoma Hiatal hernia Cervical radiculopathy due to Spinal stenosis Allergic rhinitis PTSD Discharge Disposition: Home Discharge Instruct/Medications Diet: Regular Activity: No Restrictions, As Tolerated Follow Up/Referral: Follow up with the PCP within 1 week of the discharge. Follow up with the GI on outpatient basis. Follow up with the discharge Clinic within 1 week of the discharge. Medications: Augmentin 875 mg b.i.d. for 4 days Continue home meds Scheduled Amlodipine Besylate (Norvasc Tablet), Unknown Dose PO DAILY, (Reported) Amoxicillin & Pot Clavulanate (Augmentin Tablet), 875 MG PO BID Cholecalciferol (Vitamin D3), Unknown Dose PO DAILY, (Reported) Duloxetine Hcl (Cymbalta), Unknown Dose PO DAILY, (Reported) Glipizide (Glipizide), Unknown Dose PO BID, (Reported) Losartan Potassium (Losartan Potassium), Unknown Dose PO DAILY, (Reported) Miscellaneous Medications Buspirone HCl (Buspirone HCl), Unknown Dose PO, (Reported) Methocarbamol (Methocarbamol), Unknown Dose PO, (Reported) Tamsulosin Hcl (Tamsulosin Hcl), Unknown Dose PO, (Reported) Trazodone Hcl (Trazodone Hcl), Unknown Dose PO, (Reported) Discharge Statement: "Patient was advised to return to the ER or call 911 if any headaches, dizziness, shortness of breath, chest pain, abdominal pain, bleeding, fevers, or worsening of medical condition. Patient was counseled about treatment plan, medications, possible side effects, patientverbalized understanding. All questions were answered to the best of my ability. This discharge took greater then 30 minutes in planning, reviewing documentation, counseling the patient, and discussing with other team members." ASSESSMENT ASSESSMENT Assessment Diverticulitis Date of Service: Sep 10, 2025 Billing Provider: FERNANDA CHAKRABORTY MD Common Visit Codes: [id number]/[id number] DISCH DAY >30min LEONCIO WARD Sep 10, 2025 14:16 FERNANDA CHAKRABORTY MD Sep 12, 2025 16:44
== END 2025-09-10 13:15 | disposition home or self-care (01) | DRG 392 ==
LOC: ER 08:40 → OVERFLOW 17:09 → CENTRAL 23:48
PROVIDERS: ADMIT Student in an Organized Health Care Education/Training Program; ATTEND Student in an Organized Health Care Education/Training Program
DX: A09 Infectious gastroenteritis and colitis, unspecified (principal); K57.92 Diverticulitis of intestine, part unspecified, without perforation or abscess without bleeding; E11.65 Type 2 diabetes mellitus with hyperglycemia; I10 Essential (primary) hypertension; J44.9 Chronic obstructive pulmonary disease, unspecified; N28.1 Cyst of kidney, acquired; K57.30 Diverticulosis of large intestine without perforation or abscess without bleeding; M54.12 Radiculopathy, cervical region; K44.9 Diaphragmatic hernia without obstruction or gangrene; M48.02 Spinal stenosis, cervical region; J30.9 Allergic rhinitis, unspecified; F43.10 Post-traumatic stress disorder, unspecified; H40.9 Unspecified glaucoma; H91.93 Unspecified hearing loss, bilateral; Z88.0 Allergy status to penicillin; Z79.899 Other long term (current) drug therapy
CPT/HCPCS: 36415; 74177; 80048; 80053; 81001; 82962; 83036; 84484; 85025; 85610; 85730; 93005; 94640; G0378; J1815; J3490